=== PATIENT | female | born 1975 | race Caucasian/White ===

== ENCOUNTER 2020-08-27 11:19 | Emergency (ER) | payer OTHER ==
--- NOTE | 2020-08-27 11:50 | TELE ---
HPI Do you have fever,cough or shortness of breath?: No - General Reason For Visit: VIRTUAL VISIT History Source: Patient Exam Limitations: No Limitations - History of Present Illness 08/27/20 11:47 Patient is a 45-year-old female who participated in a virtual urgent care visit for routine COVID testing secondary to going to visit her parents in the next few days. She states she is going to [place] to see her parents and would like to be proactive prior to going as they are elderly. The patient denies any symptoms at this time. She denies any recent travel. She denies any known COVID contacts. She has no past medical history or allergies to medications. Review of Systems - Review of Systems Comments:: 08/27/20 11:48 - Review of Systems Able to Perform ROS?: Yes Constitutional: No: Fever, Chills, Loss of Appetite, Night Sweats, Weakness; positive: COVID routine testing HEENTM: No: Eye Pain, Vision changes, Ear Pain, Throat Pain, Throat Swelling, Mouth Pain, Difficulty Swallowing Respiratory: No: Cough, Shortness of Breath, Wheezing, Sputum Production Cardiac (ROS): No: Chest Pain, Chest Tightness, Palpitations, Irregular Heart Beat, Edema ABD/GI: No: Nausea, Vomiting, Abdominal Pain, Diarrhea : No Dysuria, No Hematuria, No Frequency, No Urgency Musculoskeletal: No: Muscle Pain, Back Pain, Joint Pain, Muscle Weakness, Neck Pain Integumentary: No: Lesions, Rash Neurological: No: Headache, Numbness, Tingling, Weakness, Speech Difficulties *Physical Exam - Physical Exam 08/27/20 11:48 - Physical Exam General Appearance: Nourished, Appropriately Dressed, No Distress HEENT: EOMI, Normal Voice, Hearing Grossly Normal Neck: No Decreased range of motion Respiratory/Chest: Normal chest excursion appreciated, No Accessory Muscle Use Gastrointestinal/Abdominal: No distention Musculoskeletal: Normal Inspection Integumentary: Normal Color, Dry. No Rash Neurologic: esthetic dermatologist II-XII NML intact, Fully Oriented, Alert, Normal Mood/Affect, Normal Response - Medical Decision Making 08/27/20 11:49 Assessment: Patient is a 45-year-old female who participated in a virtual urgent care visit for routine COVID testing secondary to upcoming travel to [place] to visit her elderly parents. Plan: -COVID swab ordered -COVID counseling given, isolation precautions reviewed -Patient to proceed to the [facility] for testing -She understands and agrees with this treatment plan. Discharge Diagnosis at time of Disposition: Counseled about COVID-19 virus infection - Referrals Follow-up Referral(s): Cam Gillis [Primary Care Provider] - - Patient Instructions Discharge Instructions: [facility] Instructions, [facility] COVID-19 Isolation Protocol Additional Discharge Instructions: You were seen via a telehealth visit and tested for COVID today. You should follow isolation precautions as per [facility] guidelines. Thank you for participating in our telehealth medicine program. If you have any worsening symptoms such as high fever, shaking chills, profuse vomiting or any other worsening symptoms you should go to your local emergency department immediately or follow up with your primary care doctor immediately. If you become symptomatic Take Tylenol 650 mg every 6 hours as needed for fever or pain. You may take Robitussin or other [id number] cough syrup. Follow the dosing instructions on the bottle. Warm tea, honey, and salt water gargles may help your symptoms. Please take precautions and self quarantine for 2 weeks and follow-up with your primary care doctor and the Department of Health. Return to the nearest emergency department for shortness of breath, difficulty breathing, chest pain, or if you have any changes in your symptoms. - Discharge Disposition: HOME Condition at time of Disposition: Stable
== END 2020-08-27 11:50 | disposition home or self-care (01) ==
LOC: JVIRT 11:19
DX: Z11.59 Encounter for screening for other viral diseases (principal)
CPT/HCPCS: C9803; Q3014-GT; U0003